=== PATIENT | male | born 2000 | race African-American/Black ===

== ENCOUNTER 2022-02-19 15:14 | Emergency (ER) | payer MEDICAID ==
[~2022-02-19] VITALS: Ht 180.3 cm; Wt 79.4 kg
[2022-02-19 15:15] VITALS: BP_SYST 92
[2022-02-19] MEDS ORDERED: NACL 0.9% 1,000 ML IV ONE (15:30)
[2022-02-19] MEDS ORDERED: LORazepam 2 MG/ML VIAL IVP ONE ×2 (15:30→16:00)
[2022-02-19] MEDS ORDERED: ONDANSETRON HCL 4 MG/2 ML VIAL IVP ONE (15:30)
[2022-02-19] MEDS ORDERED: levETIRAcetam 500 MG IV PREMIX 100 ML IV ONE ×2 (15:30→15:45)
--- NOTE | 2022-02-19 15:50 | NUR ---
Placed in [facility] in hallway . Placed on manager monitoring, blood pressure machine and pulse oximeter. To gown for exam. Side rails up.
[2022-02-19 15:58] LABS: BASOPHILS % (AUTO) 0.7 % (0.0-2.0); EOSINOPHILS # (AUTO) 0.1 K/uL (0.0-0.4); EOSINOPHILS % (AUTO) 1.4 % (0.0-4.0); HEMATOCRIT 45.9 % (36-54); LYMPHOCYTES # (AUTO) 1.6 K/uL (1.0-5.5); LYMPHOCYTES % (AUTO) 24.7 % (20.5-51.5); MEAN CORPUSCULAR HEMOGLOBIN 33 pg (27-31); MEAN CORPUSCULAR HGB CONC 33 % (32-36); MEAN CORPUSCULAR VOLUME 101 fL (79.0-98.0); MONOCYTES # (AUTO) 0.4 K/uL (0.0-1.0); MONOCYTES % (AUTO) 5.4 % (1.7-9.3); NEUTROPHILS # (AUTO) 4.5 K/uL (1.8-7.7); NEUTROPHILS % (AUTO) 67.8 % (40.0-70.0); PLATELET COUNT (AUTO) 233 K/uL (130-430); RED BLOOD CELL COUNT(AUTO) 4.55 MIL/uL (4.2-6.2); RED CELL DISTRIBUTION WIDTH 11.7 % (9.0-15.0); WHITE BLOOD COUNT (AUTO) 6.7 K/uL (4.5-11.0)
--- NOTE | 2022-02-19 16:00 | NUR ---
Pt BIBA C/O seizure Pt AOX2 upon arrival and combactive VSS AOX4 Pt medicated per MD's order NAD at this time will continue to monitor
[2022-02-19 16:09] LABS: CALCIUM 9.7 mg/dL (8.4-11.0); CREATININE 1.3 mg/dL (0.55-1.30)
[2022-02-19 16:20] LABS: ALBUMIN 4.3 g/dL (3.4-4.8); TOTAL BILIRUBIN 0.3 mg/dL (0.0-1.0)
--- NOTE | 2022-02-19 18:13 | NUR ---
Pt removed IV access Attempted to restart IV X3. No success. Pt AOX4 a nd noncombactive at this time made aware
[2022-02-19] MEDS ORDERED: levETIRAcetam 500 MG TABLET PO ONE (18:30)
[2022-02-19] MEDS ORDERED: LEVE500T9 PO (18:32)
--- NOTE | 2022-02-19 20:08 | NUR ---
Attempted to call family member @ [phone] for d/c /transportation; unable to reach anyone at this time.
--- NOTE | 2022-02-19 21:46 | NUR ---
Spoke to pt's grandmother @ . Grandmother will be picking pt up within next 30 min.
--- NOTE | 2022-02-19 22:02 | NUR ---
Patient given written and verbal discharge instructions and verbalizes understanding. ER MD Sigala discussed with patient the results and treatment provided. Patient in stable condition. ID arm band removed. Rx sent to preferred pharmacy. Patient educated on pain management and to follow up with PMD. Pain Scale 0/10. Opportunity for questions provided and answered. Medication side effect fact sheet provided.
[2022-02-19 22:13] VITALS: BP_SYST 132
== END 2022-02-19 22:12 | disposition home or self-care (01) ==
LOC: SED 15:14 → EDBD 15:14 → SED 22:12
DX: G40.909 Epilepsy, unspecified, not intractable, without status epilepticus (principal); Z91.14 Patient's other noncompliance with medication regimen; F12.90 Cannabis use, unspecified, uncomplicated; Z79.899 Other long term (current) drug therapy
CPT/HCPCS: 99284; 96365; 96375; 80053; 83735; 85025; 36415; 93005; 96368; J1953; J2060; J2405